=== PATIENT | female | born 1985 | race Caucasian/White ===

== ENCOUNTER 2017-10-01 06:10 | Inpatient (IN) | payer MEDICAID, OTHER ==
--- NOTE | 2017-09-30 19:18 | HHI.HP ---
HPI Chief Complaint repeat cd Travel History International Travel<30 Days: No Contact w/Intl Traveler<30Days: No Known Affected Area: No History of Present Illness HPI 32 yo with iup at 398 weeks being admitted for repeat cd. She has a h/ o cd for 9 pound infant, OT presentation. EFW is 94 %ile for this ; pt has elected repeat cd. Endorses good fm, neg vb, lof. No contractions History Past Medical History Narrative Medical reflux Obstetric History Obstetric History G1 MAB G2 07/2015 primary CD, FT, 9 lb male, OT presentatino. 50 lb wt gain during G3 current Past Surgical History Narrative Surgical tonsillectomy LTCD Family History Family History: Negative Social History Alcohol Use: No Tobacco Use: No Substance Abuse: No Allergies-Medications (Allergen,Severity, Reaction): Coded Allergies: No Known Allergies (Unverified , 07/31/15) Home Meds Reported Medications Multivit/Min/Fol Ac/Iron/Pren ( Vit ( Plus)) Tab, 1 TAB PO DAILY, TAB 07/31/15 Review of Systems General / Constitutional: No: Fever, Weight Gain, Chills, Other Eyes: No: Diploplia, Blurred Vision, Visual changes, Pain, Photophobia HENT: No: Headaches, Vertigo, Lightheadedness Cardiovascular: No: Irregular Rhythm, Chest Pain or Discomfort, Palpitations, Tachycardia, Syncope, Varicosities, Edema, Cyanosis Respiratory: No: Cough, Short of Breath, Other Gastrointestinal: No: Nausea, Vomiting, Diarrhea Genitourinary: No: Decreased Urinary Output, Oliguria Musculoskeletal: No: Limited ROM, Weakness, Cramping, Edema, Pain Skin: No Rash, No Itching, No Dryness, No Lumps, No Change in Pigmentation, No Change in Nails, No Alopecia, No Lesions Neurologic: No: Weakness, Dizziness, Syncope, Focal Abnormalities, Coordination Problem, Headache, Slurred Speech, Seizures Psychiatric: No: Depression, Suicidal Ideations, Homicidal Ideation Endocrine: No: Heat Intolerance, Cold Intolerance, Polydipsia, Polyuria, Other Physical Exam Narrative GENERAL: Well-nourished, well-developed patient. SKIN: Warm and dry. HEAD: Normocephalic and atraumatic. EYES: No scleral icterus. No injection or drainage. ENT: No nasal drainage noted. Mucous membranes pink. Airway patent. NECK: Supple, trachea midline. No JVD. CARDIOVASCULAR: Regular rate and rhythm without murmurs, gallops, or rubs. RESPIRATORY: Breath sounds equal bilaterally. No accessory muscle use. BREASTS: Bilateral exam showed no masses , no retractions, no nipple discharge. ABDOMEN/GI: Abdomen soft, non-tender, bowel sounds present, no rebound, no guarding Gravid to 39 weeks size Fundal Height: [-] GENITOURINARY: External Genitalia: intact and normal in appearance BUS glands: [-] Cervix:1-2/50/-2 Presentation: [facility] Membranes: [intact Uterine Contractions: [-] FHT's: + dopplers fht in office. NST on admission EXTREMITIES: No cyanosis or edema. BACK: Nontender without obvious deformity. No CVA tenderness. NEUROLOGICAL: Awake and alert. Motor and sensory grossly within normal limits. Five out of 5 muscle strength in all muscle groups. Normal speech. Caprini VTE Risk Assessment Caprini VTE Risk Assessment: No/Low Risk (score <= 1) Caprini Risk Assessment Model Point Value = 1 Point Value = 2 Point Value = 3 Point Value = 5 Age 41-60 Minor surgery BMI > 25 kg/m2 Swollen legs Varicose veins or History of unexplained or recurrent spontaneous Oral contraceptives or hormone replacement Sepsis (< 1 month) Serious lung disease, including pneumonia (< 1 month) Abnormal pulmonary function Acute myocardial infarction Congestive heart failure (< 1 month) History of inflammatory bowel disease Medical patient at bed rest Age 61-74 Arthroscopic surgery Major open surgery (> 45 min) Laparoscopic surgery (> 45 min) Malignancy Confined to bed (> 72 hours) Immobilizing plaster cast Central venous access Age >= 75 History of VTE Family history of VTE Factor V Leiden Prothrombin [id number] Lupus anticoagulant Anticardiolipin antibodies Elevated serum homocysteine Heparin-induced thrombocytopenia Other congenital or acquired thrombophilia Stroke (< 1 month) Elective arthroplasty Hip, pelvis, or leg fracture Acute spinal cord injury (< 1 month) Prophylaxis Regimen Total Risk Factor Score Risk Level Prophylaxis Regimen 0-1 Low Early ambulation 2 Moderate Order ONE of the following: *Sequential Compression Device (SCD) *Heparin 5000 units SQ BID 3-4 Higher Order ONE of the following medications: *Heparin 5000 units SQ TID *Enoxaparin/Lovenox 40 mg SQ daily (WT < 150 kg, CrCl > 30 mL/min) *Enoxaparin/Lovenox 30 mg SQ daily (WT < 150 kg, CrCl > 10-29 mL/min) *Enoxaparin/Lovenox 30 mg SQ BID (WT < 150 kg, CrCl > 30 mL/min) AND/OR *Sequential Compression Device (SCD) 5 or more Highest Order ONE of the following medications: *Heparin 5000 units SQ TID (Preferred with Epidurals) *Enoxaparin/Lovenox 40 mg SQ daily (WT < 150 kg, CrCl > 30 mL/min) *Enoxaparin/Lovenox 30 mg SQ daily (WT < 150 kg, CrCl > 10-29 mL/min) *Enoxaparin/Lovenox 30 mg SQ BID (WT < 150 kg, CrCl > 30 mL/min) AND *Sequential Compression Device (SCD) Data Data Vital Signs Reviewed: Yes (in office bp wnl) Group B Strep: Negative Assessment/Plan Problem List: (1) History of low transverse section ICD Codes: Z98.891 - History of uterine scar from previous surgery Assessment and Plan 32 yo with iup at 39 weeks being admitted for repeat cd 1) repeat cd- reviewed TOLAC, discussed EFW 94%ile, family has elected for repeat cd 2) GBS neg 3) fetus cephalic, nst on admission Lizeth Price MD Sep 30, 2017 19:18
[2017-10-01] VITALS (13 sets, daily range): BP systolic 102–119; BP diastolic 52–75; PULSE 66–97; RESP 16–20; TEMP 97.5–98.5; O2SAT 97–99
[~2017-10-01] VITALS: Ht 167.6 cm; Wt 91.0 kg
[~2017-10-01 06:10] MED LIST: PREN0.01 PO
[2017-10-01] MEDS ORDERED: CITRIC ACID-SODIUM CITRATE LIQ 30 ML UDC PO SCH (06:30)
[2017-10-01] MEDS ORDERED: LACTATED RINGER'S 1000 ML IV ONE (06:30)
[2017-10-01] MEDS ORDERED: LACTATED RINGER'S 1000 ML IV SCH (06:30)
[2017-10-01 07:13] LABS: AUTOMATED NEUTROPHIL # 7.6 TH/MM3 (1.8-7.7); BASOPHIL # 0.1 TH/MM3 (0-0.2); BASOPHIL % 0.7 % (0.0-2.0); EOSINOPHIL # 0.1 TH/MM3 (0-0.4); EOSINOPHIL % 0.6 % (0.0-4.0); HEMATOCRIT 31.3 % (35.0-46.0); HEMOGLOBIN 10.4 GM/DL (11.6-15.3); LYMPH % 23.7 % (9.0-44.0); LYMPHOCYTE # 2.6 TH/MM3 (1.0-4.8); MEAN CELL VOLUME 76.4 FL (80.0-100.0); MEAN CORPUSCULAR HEMOGLOBIN 25.4 PG (27.0-34.0); MEAN CORPUSCULAR HGB CONC 33.2 % (32.0-36.0); MEAN PLATELET VOLUME 7.2 FL (7.0-11.0); MONO % 6.4 % (0.0-8.0); MONOCYTE # 0.7 TH/MM3 (0-0.9); NEUT % 68.6 % (16.0-70.0); PLATELET COUNT 385 TH/MM3 (150-450); RED BLOOD COUNT 4.09 MIL/MM3 (4.00-5.30); RED CELL DISTRIBUTION WIDTH 15.7 % (11.6-17.2)
[2017-10-01] MEDS ORDERED: ceFAZolin 2 GM PREMIX 50 ML IV SCH (07:15)
[2017-10-01 07:26] LABS: BACTERIA, URINE RARE /hpf; BILIRUBIN, URINE NEG (NEG); BLOOD, URINE NEG (NEG); GLUCOSE,URINE NEG (NEG); KETONE, URINE NEG (NEG); MUCUS URINE FEW /lpf (OCC); NITRITE,URINE NEG (NEG); SQUAMOUS EPITHELIAL CELL URINE 3 /hpf (0-5); URINE COLOR YELLOW (YELLW/STRAW); URINE LEUKOCYTE ESTERASE NEG (NEG)
[2017-10-01] MEDS ORDERED: MORPHINE SULFATE PF 5 MG/10 ML VIAL ONE (08:05)
[2017-10-01] MEDS ORDERED: EPIDURAL-DO NOT ADMINISTER ANTICOAGULANTS PRN (08:10)
[2017-10-01] MEDS ORDERED: EPIDURAL-DIPHENHYDRAMINE HCL 50 MG CAP PO PRN (08:10)
[2017-10-01] MEDS ORDERED: EPIDURAL-NO SYSTEMIC NARCOTICS PRN (08:10)
[2017-10-01] MEDS ORDERED: EPIDURAL-NALOXONE HCL 0.4 MG/ML AMP IV PUSH PRN (08:10)
[2017-10-01] MEDS ORDERED: EPIDURAL-DIPHENHYDRAMINE HCL 50 MG/ML VIAL IV PUSH PRN (08:10)
--- NOTE | 2017-10-01 09:19 | PD.OB.DELI ---
Procedure Note Section Procedure Pre Op Diagnosis: (1) 39 weeks gestation of (2) History of low transverse section Post Op Diagnosis: (1) History of low transverse section (2) 39 weeks gestation of Performed by Lizeth Price Procedure: Repeat Low Transverse Sec Indication for delivery: Desired elective repeat Previous condition: None Informed consent obtained: For anesthesia, For procedure Confirmed correct: Patient, Procedure, Site, Time-out taken Anesthesia: Spinal Medication prior to procedure: As documented in eMAR Monitoring during procedure: Blood pressure monitoring, Pulse oximetry Urinary catheter: Inserted using sterile technique, To dependent drainage, ml urine output (200) Sterile preparation: With 2% chlorexidine (Hibiclens), With drapes to expose affected area Position: Supine with wedge to right side, Supine with safety belt applied Operative Features Skin Incision: Pfannenstiel Uterine Incision: Low transverse w/knife / blunt ext Membranes Ruptured: Artificially, Appearance of fluid (cl) Presentation: Other (OT) Delivery date: Oct 01, 2017 Delivery time: 08:30 Delivery of infant: Uneventful : Female One Minute : 9 Five Minute : 9 Weight: 8 lb 6oz Status of infant: Viable, Cord blood Placenta delivered: Intact Medications: Antibiotics, Oxytocin Estimated blood loss: 600ml Procedure tolerated: Well Maternal Condition: Stable Condition: Stable Procedure in detail dictated Lizeth Price MD Oct 01, 2017 09:19
[2017-10-01] MEDS ORDERED: ACETAMINOPHEN 1000 MG/100 ML 100 ML IV ONE ×2 (09:30→09:36)
[2017-10-01] MEDS ORDERED: SIMETHICONE 80 MG CHEWABLE TAB PO PRN (09:30)
[2017-10-01] MEDS ORDERED: OXYTOCIN 30 UNITS-500ML PREMIX 500 ML IV ONE (09:30)
[2017-10-01] MEDS ORDERED: ONDANSETRON HCL 4 MG/2 ML VIAL IV PUSH PRN (09:30)
[2017-10-01] MEDS ORDERED: oxyCODONE/ACETAMINOPHEN 5 MG/325 MG TAB PO PRN (09:30)
[2017-10-01] MEDS ORDERED: DOCUSATE SODIUM 50 MG/SENNA 8.6 MG TAB PO PRN (09:30)
[2017-10-01] MEDS ORDERED: ACETAMINOPHEN 325 MG TAB PO PRN (09:30)
[2017-10-01] MEDS ORDERED: OXYTOCIN 30 UNITS-500ML PREMIX 500 ML ONE (09:37)
--- NOTE | 2017-10-01 11:06 | MP ---
cc: LIZETH PRICE MD DATE OF SURGERY 10/01/2017 PREOPERATIVE DIAGNOSIS Prior delivery. POSTOPERATIVE DIAGNOSIS Prior delivery. INDICATIONS The patient is a 31-year-old, G3, P1-0-1-1, with an intrauterine at 39 weeks who was admitted for repeat delivery. She had a prior a 9 pound and this infant is projected to be in the 94th percentile. The patient desired a repeat delivery. SURGERY Repeat low transverse delivery. SURGEON Lizeth Price. BOILER ASSISTANT OPERATOR Valorie Staff. ANESTHESIA Spinal. ESTIMATED BLOOD LOSS 600 mL. IV FLUIDS 1300 mL. URINE OUTPUT 200 mL of clear yellow urine at the end of the case. PREOPERATIVE ANTIBIOTIC Ancef 2 grams IV given pre incision. DVT PROPHYLAXIS SCDs to bilateral lower extremities. COMPLICATIONS None. COUNTS Correct x3. SPECIMEN Cord blood. INTRAOPERATIVE FINDINGS Viable female , Apgars 9 and 9, OT presentation, weight 8 pounds 6 ounces. Clear amniotic fluid. Placenta with central cord insertion delivered intact. Uterus, tubes and ovaries with normal limits. An omental adhesion was noted to the anterior abdominal wall and to the lower uterine segment. Filmy adhesions of the bladder to the lower uterine segment. PROCEDURE IN DETAIL After informed consent the patient was taken to the operating room where spinal anesthesia was administered without complication. A Mahajan was placed in sterile fashion, placed to dependent drainage. SCDs were placed. The abdomen was prepped and draped in normal sterile fashion. Anesthesia was confirmed to be adequate. A Pfannenstiel skin incision was made with a scalpel, carried down to the underlying layer of fascia. The fascia was incised in the midline. This incision was extended with Kelly scissors. The superior aspect of the fascial incision was grasped with Nahed clamps, elevated, and the rectus muscles were dissected off sharply with Kelly scissors. The same was repeated inferiorly. The rectus muscles were in the midline with a hemostat and this was bluntly. The peritoneum was entered bluntly. A bladder blade was then inserted. Filmy adhesions of the bladder to the lower uterine segment were taken down. A bladder flap was then developed with Metzenbaum scissors. A low transverse uterine incision was made with a scalpel. Clear amniotic fluid was noted. The hysterotomy was extended bluntly. The head was flexed, brought to the level of the hysterotomy and gentle fundal pressure was used to deliver the infant. Delayed cord clamping was performed. The cord was doubly clamped and cut. The baby was bulb-suctioned. The baby was handed off to the awaiting warehouse consultant. The placenta was then removed with gentle cord traction and uterine massage. The uterus was exteriorized and cleared of all clots and debris and membrane with moist laparotomy sponges. The uterus was repaired with #1 chromic in a running fashion followed by an imbricating layer. The adhesion of the omentum to the anterior wall was taken down with the Bovie and good hemostasis was noted. The posterior cul-de-sac was irrigated and suctioned. The uterus was returned to the abdomen. The anterior cul-de-sac was irrigated and suctioned. Good hemostasis was noted. The peritoneum was closed with 2-0 chromic in a running fashion. The fascia was closed with #1 Vicryl in a running fashion. The subcutaneous layer was irrigated and suctioned. Hemostasis was obtained with the Bovie. This layer was closed with 2-0 chromic in a running fashion. The skin was closed with 3-0 Monocryl in a subcuticular fashion. Steri-Strips were placed followed by a pressure dressing. The patient tolerated the procedure well. Disposition is stable to the PACU. Lizeth Price MD PE/HAY /9:11 AM /10:43 AM
[2017-10-01] MEDS ORDERED: LACTATED RINGER'S 1000 ML INJ 1,000 ML IV SCH (14:19)
[2017-10-01] MEDS ORDERED: OXYTOCIN 30 UNITS-500ML PREMIX 500 ML IV PRN (19:30)
[2017-10-01] MEDS: IBUPROFEN 600 MG TAB PO PRN (20:55)
[2017-10-01] MEDS ORDERED: ZOLPIDEM TARTRATE 5 MG TAB PO PRN (21:00)
[2017-10-02] VITALS (7 sets, daily range): BP systolic 108–112; BP diastolic 67–73; PULSE 74–78; RESP 18–20; TEMP 97.9–98.1; O2SAT 98
[2017-10-02] MEDS: IBUPROFEN 600 MG TAB PO PRN ×3 (03:25→21:04)
[2017-10-02 05:59] LABS: AUTOMATED NEUTROPHIL # 15.6 TH/MM3 (1.8-7.7); BASOPHIL % 0.2 % (0.0-2.0); EOSINOPHIL % 0.2 % (0.0-4.0); HEMATOCRIT 30.1 % (35.0-46.0); HEMOGLOBIN 9.5 GM/DL (11.6-15.3); LYMPH % 13.3 % (9.0-44.0); LYMPHOCYTE # 2.6 TH/MM3 (1.0-4.8); MEAN CELL VOLUME 77.2 FL (80.0-100.0); MEAN CORPUSCULAR HEMOGLOBIN 24.5 PG (27.0-34.0); MEAN CORPUSCULAR HGB CONC 31.7 % (32.0-36.0); MEAN PLATELET VOLUME 7.3 FL (7.0-11.0); MONO % 6.5 % (0.0-8.0); MONOCYTE # 1.3 TH/MM3 (0-0.9); NEUT % 79.8 % (16.0-70.0); PLATELET COUNT 367 TH/MM3 (150-450); RED CELL DISTRIBUTION WIDTH 15.8 % (11.6-17.2); WHITE BLOOD COUNT 19.5 TH/MM3 (4.0-11.0)
[2017-10-02] MEDS: oxyCODONE/ACETAMINOPHEN 5 MG/325 MG TAB PO PRN ×3 (07:37→21:05)
[2017-10-02] MEDS ORDERED: PERC2.5T PO (08:24)
--- NOTE | 2017-10-02 08:25 | HHI.DCPOC ---
Discharge Care Plan Your Health Problems Are: delivery Report Symptoms to Your Doctor -Temperature above 100.5 degrees -Redness, of incision or excessive or foul smelling drainage -Unusual pain or calf pain -Increased vaginal bleeding -Painful or difficulty urinating -Feelings of extreme sadness or anxiety after 2 weeks Goals to Promote Your Health * To prevent worsening of your condition and complications * To maintain your health at the optimal level Directions to Meet Your Goals Take your medications as prescribed Follow your dietary instruction Follow activity as directed Ensure plenty of rest for recovery Drink fluids for hydration Keep your appointments as scheduled Take your immunizations and boosters as scheduled If your symptoms worsen call your PCP, if no PCP go to Urgent Care Center or Emergency Room Smoking is Dangerous to Your Health. Avoid second hand smoke Call the 24-hour crisis hotline for domestic abuse at Juma Redmond MD Oct 02, 2017 08:25
--- NOTE | 2017-10-02 08:28 | HHI.OB ---
Subjective Post Operative Day: 1 Remarks doing well, pain increased yet to receive percocet this am, VB < menses, voiding , TPO no n/v Objective Vitals/I&O Vital Signs Date Time Temp Pulse Resp B/P (MAP) Pulse Ox O2 Delivery O2 Flow Rate FiO2 10/02/17 05:30 97.9 10/02/17 05:30 78 18 108/67 (81) 10/02/17 04:15 20 10/02/17 03:27 20 10/02/17 03:15 18 10/02/17 03:00 18 10/02/17 01:10 20 10/01/17 23:30 98.5 91 18 10/01/17 23:30 109/70 (83) 10/01/17 23:00 18 10/01/17 20:55 98.2 90 18 111/71 (84) 10/01/17 16:10 98.0 79 18 119/70 (86) 10/01/17 11:15 97.6 66 18 118/68 (85) 10/01/17 10:25 97.9 102/52 (69) 10/01/17 10:25 75 16 97 10/01/17 10:09 16 99 10/01/17 10:09 88 104/55 (71) 10/01/17 09:56 73 16 110/55 (73) 97 10/01/17 09:41 88 16 108/62 (77) 97 10/01/17 09:21 90 10/01/17 09:20 109/62 (78) 10/01/17 09:20 97.5 18 98 Result Diagram: 10/02/17 0503 Objective Remarks GENERAL: Well-nourished, well-developed patient. CARDIOVASCULAR: Regular rate and rhythm without murmurs, gallops, or rubs. RESPIRATORY: Breath sounds equal bilaterally. No accessory muscle use. ABDOMEN/GI: Abdomen soft, non-tender, bowel sounds present. Incision: Clean, dry and intact. Fundus: Firm, non-tender at umbilicus. GENITOURINARY: Light to moderate bleeding. EXTREMITIES: No cyanosis or edema, non-tender, without signs of DVT. Medications and IVs Current Medications Medications (Trade) Dose Ordered Sig/Nathan Route Start Time Stop Time Status Last Admin Lactated Ringer's 1,000 ml @ 150 mls/hr Q6H40M IV 10/01/17 06:30 10/01/17 07:33 (Bicitra Liq) 30 ml COAT AGENT PO 10/01/17 06:30 10/04/17 06:29 10/01/17 07:33 Cefazolin Sodium/ Dextrose 50 ml @ 100 mls/hr COAT AGENT IV 10/01/17 07:15 10/04/17 07:14 10/01/17 07:37 Lactated Ringer's 1,000 ml @ 100 mls/hr Q10H IV 10/01/17 14:19 10/02/17 10:18 Oxytocin 500 ml @ 100 mls/hr UNSCH X1 PRN IV 10/01/17 19:30 10/02/17 19:29 (Mylicon Chew) 80 mg QID PRN PO 10/01/17 09:30 (Tylenol) 650 mg Q6H PRN PO 10/01/17 09:30 (Motrin) 600 mg Q6H PRN PO 10/01/17 09:30 10/02/17 03:25 (Percocet 5-325 Mg) 1 tab Q4H PRN PO 10/01/17 09:30 (Percocet 5-325 Mg) 2 tab Q4H PRN PO 10/01/17 09:30 10/02/17 07:37 (Devora-Colace) 2 tab Q12H PRN PO 10/01/17 09:30 (Ambien) 5 mg HS PRN PO 10/01/17 21:00 (M-M-R Ii Inj) 0.5 ml ONCE ONCE SQ 10/02/17 16:00 10/02/17 16:01 (Boostrix Inj) 0.5 ml ONCE ONCE IM 10/02/17 16:00 10/02/17 16:01 10/02/17 03:27 (Zofran Inj) 4 mg Q6H PRN IV PUSH 10/01/17 09:30 Assessment/Plan Problem List: (1) History of low transverse section ICD Codes: Z98.891 - History of uterine scar from previous surgery Assessment and Plan 32 yo s/p RLTCS at 39w 1. POD #1: AF, VSS output and AM labs appropriate, anticipate d/c home in 48hrs. Discussed / post op expectations and precautions. Juma Redmond MD Oct 02, 2017 08:28
[2017-10-02] MEDS ORDERED: MEASLES, MUMPS, RUBELLA VACCINE 0.5 ML VIAL SQ ONE (16:00)
[2017-10-02] MEDS ORDERED: DIPHTH/TETANUS/ACEL PERTUSSIS (BOOSTER) 0.5 ML VIAL/PFS IM ONE (16:00)
[2017-10-03] MEDS: IBUPROFEN 600 MG TAB PO PRN (03:48)
[2017-10-03] MEDS: oxyCODONE/ACETAMINOPHEN 5 MG/325 MG TAB PO PRN (03:49)
[2017-10-03 08:00] VITALS: BP 117/77; PULSE 70; RESP 18; TEMP 97.4; O2SAT 95
--- NOTE | 2017-10-03 08:14 | HHI.OB ---
Subjective Post Operative Day: 2 Remarks Doing well Pain is well controlled Baby is good Tolerating diet well Objective Vitals/I&O Vital Signs Date Time Temp Pulse Resp B/P (MAP) Pulse Ox O2 Delivery O2 Flow Rate FiO2 10/02/17 20:00 74 18 112/73 (86) 98 10/02/17 20:00 98.1 Result Diagram: 10/02/17 0503 Objective Remarks GENERAL: Well-nourished, well-developed patient. CARDIOVASCULAR: Regular rate and rhythm without murmurs, gallops, or rubs. RESPIRATORY: Breath sounds equal bilaterally. No accessory muscle use. ABDOMEN/GI: Abdomen soft, non-tender, bowel sounds present. Incision: Clean, dry and intact. Fundus: Firm, non-tender at umbilicus. GENITOURINARY: Light to moderate bleeding. EXTREMITIES: No cyanosis or edema, non-tender, without signs of DVT. Medications and IVs Current Medications Medications (Trade) Dose Ordered Sig/Nathan Route Start Time Stop Time Status Last Admin Lactated Ringer's 1,000 ml @ 150 mls/hr Q6H40M IV 10/01/17 06:30 10/01/17 07:33 (Bicitra Liq) 30 ml MATERIALS SUPERVISOR PO 10/01/17 06:30 10/04/17 06:29 10/01/17 07:33 Cefazolin Sodium/ Dextrose 50 ml @ 100 mls/hr MATERIALS SUPERVISOR IV 10/01/17 07:15 10/04/17 07:14 10/01/17 07:37 (Mylicon Chew) 80 mg QID PRN PO 10/01/17 09:30 10/02/17 16:36 (Tylenol) 650 mg Q6H PRN PO 10/01/17 09:30 (Motrin) 600 mg Q6H PRN PO 10/01/17 09:30 10/03/17 03:48 (Percocet 5-325 Mg) 1 tab Q4H PRN PO 10/01/17 09:30 (Percocet 5-325 Mg) 2 tab Q4H PRN PO 10/01/17 09:30 10/03/17 03:49 (Devora-Colace) 2 tab Q12H PRN PO 10/01/17 09:30 10/02/17 21:05 (Ambien) 5 mg HS PRN PO 10/01/17 21:00 (Zofran Inj) 4 mg Q6H PRN IV PUSH 10/01/17 09:30 Assessment/Plan Problem List: (1) History of low transverse section ICD Codes: Z98.891 - History of uterine scar from previous surgery Assessment and Plan POD #2 Doing very well wants to go home today Anemia will start some fe after the percocet is done RTO in one week Mary Jo Sherwood MD Oct 03, 2017 08:14
== END 2017-10-03 11:39 | disposition home or self-care (01) | DRG 766 ==
LOC: H2EB 06:10 → H1EA 10:57
PROVIDERS: ADMIT Obstetrics & Gynecology; ATTEND Obstetrics & Gynecology
PROC: 10D00Z1 Extraction of Products of Conception, Low, Open Approach (ICD-10-PCS; principal; 2017-10-01)
DX: O34.211 Maternal care for low transverse scar from previous cesarean delivery (principal); D64.9 Anemia, unspecified; O99.02 Anemia complicating childbirth; Z37.0 Single live birth; Z3A.39 39 weeks gestation of pregnancy
CPT/HCPCS: 59025; 80307; 81001; 85025; 86850; 86900; 86901; 90715; J0131; J0690; J2274; J2590; J7120